=== PATIENT | female | born 1990 | race Caucasian/White ===

== ENCOUNTER 2017-06-23 16:16 | Emergency (ER) | payer OTHER ==
[~2017-06-23] VITALS: Ht 170.2 cm; Wt 149.7 kg
[~2017-06-23 16:16] MED LIST: ALBU8.5H8 INH; DEXT10CA10 PO; DEXT5TAB27 PO; FOLI1TAB16 PO; GUAI120L35 PO; IBUP800T19 PO; LORC10TA PO; ONDA4TAB10 SL; ZOLP10TA PO
--- NOTE | 2017-06-23 16:52 | PHYS DOC ---
Past History Past Medical History: Other Past Surgical History: No Surgical History Alcohol Use: None Drug Use: None Adult General Chief Complaint Chief Complaint: DIARRHEA HPI HPI Patient is a 27-year-old female who presents with diffuse abdominal cramping and loose stools since yesterday. Patient denies nausea vomiting, fever chills or sweats. Denies blood in stools dark tarry stools. No recent antibiotics. No localization of lower abdominal pain. No flank pain. Pain is rated as mild-to- moderate waxed and wanes. No medications or therapy sticking prior to ED arrival. No prior abdominal surgeries. Last menstrual period was 3 weeks ago. Patient is not currently on control. Review of Systems Review of Systems Review symptoms as per history of present illness. All other review symptoms are negative. Current Medications Current Medications Current Medications Medications (Trade) Dose Ordered Sig/Rajiv Start Time Stop Time Status Last Admin Dose Admin Dicyclomine HCl (Bentyl) 20 mg 1X ONCE 06/23/17 17:00 06/23/17 17:01 Allergies Allergies Allergies Coded Allergies Type Severity Reaction Last Updated Verified Penicillins Allergy Intermediate Hives 03/05/14 Yes Physical Exam Physical Exam Constitutional: Well developed, well nourished, no acute distress, non-toxic appearance. [] HENT: Normocephalic, atraumatic, bilateral external ears normal, oropharynx moist, nose normal. [] Eyes: PERRLA, EOMI, conjunctiva normal, no discharge. [] Neck: Normal range of motion. [] Cardiovascular:Heart rate regular rhythm, no murmur [] Lungs & Thorax: Bilateral breath sounds clear to auscultation [] Abdomen: Bowel sounds normal, soft, crease bowel sounds, mild distention, no rebound rigidity or guarding. Negative McBurney's point. [] Skin: Warm, dry, no erythema. [] Back: No tenderness, no CVA tenderness. [] Extremities: No tenderness. [] Neurologic: Alert and oriented X 3, normal motor function, normal sensory function, no focal deficits noted. [] Psychologic: Affect normal, judgement normal, mood normal. [] EKG EKG [] Radiology/Procedures Radiology/Procedures [] Course & Med Decision Making Course & Med Decision Making Pertinent Labs and Imaging studies reviewed. (See chart for details) [Diffuse abdominal cramping with loose stools 24 hours. No fever or vomiting, bloody stools or recent antibiotics. Tolerates fluids in the ED. Will treat supportively with close PCP follow-up in 2-3 days. Return precautions reviewed. Return precautions reviewed. Patient verbalizes understanding treatment discharge instructions prior to departure.] Dragon Disclaimer Dragon Disclaimer This chart was dictated in whole or in part using Voice Recognition software in a busy, high-work load, and often noisy Emergency Department environment. It may contain unintended and wholly unrecognized errors or omissions. Departure Departure: Impression: Primary Impression: Abdominal pain Additional Impression: Diarrhea Disposition: HOME, SELF-CARE Condition: GOOD Referrals: MUNIRA LAWRENCE (PCP) Patient Instructions: Diarrhea, [id number], Diet for Diarrhea, Adult Additional Instructions: Please take Bentyl as prescribed for abdominal pain and cramping and tramadol as needed for additional relief. Follow-up with your PCP in 2-3 days for reevaluation if symptoms persist. In the meantime, if you develop new or worsening symptoms, return to the emergency department. Problem Qualifiers DUSTY ESCAMILLA DO Jun 23, 2017 16:52
[2017-06-23] MEDS ORDERED: DICYCLOMINE HCL 20 MG TABLET PO ONE (17:00)
[2017-06-23 17:20] VITALS: BP 146/94
== END 2017-06-23 17:20 | disposition home or self-care (01) ==
LOC: ER 16:16
DX: R10.84 Generalized abdominal pain (principal); R19.7 Diarrhea, unspecified; Z88.0 Allergy status to penicillin
CPT/HCPCS: 81025; 99283

== ENCOUNTER 2017-07-08 09:46 | Emergency (ER) | payer OTHER ==
[2017-07-08 09:52] VITALS: BP 128/84
[2017-07-08] MEDS ORDERED: HYDROcodone/APAP 7.5/325MG 1 TAB TABLET PO ONE (10:30)
--- NOTE | 2017-07-08 10:35 | PHYS DOC ---
Past History Past Medical History: No Pertinent History Past Surgical History: No Surgical History Alcohol Use: None Drug Use: Marijuana Adult General Chief Complaint Chief Complaint: LACERATION/AVULSION [facility] HPI Patient is a 27 year old female who presents with complaint of head injury and facial laceration after suffering an accidental fall at home. Patient states that she was exiting her bathtub when she slipped and fell, striking the right side of her face on the tub. Patient states that she was dazed initially but denies complete loss of consciousness. Patient states that she has a bad headache at this time and is also complaining of pain along the right side of her eye. The patient states that she suffered a laceration on the lateral aspect of her right eye over the eyelid. Bleeding was controlled prior to arrival. Patient denies any significant past medical history. Patient rates pain to the face as 10 out of 10. Patient denies loss of vision. Review of Systems Review of Systems Constitutional: Denies fever or chills [] Eyes: Denies change in visual acuity, redness, or eye pain [] HENT: Right eyelid laceration, right eye pain[] Respiratory: Denies cough or shortness of breath [] Cardiovascular: No additional information not addressed in HPI [] GI: Denies abdominal pain, nausea, vomiting, bloody stools or diarrhea [] : Denies dysuria or hematuria [] Musculoskeletal: Denies back pain or joint pain [] Integument: Denies rash or skin lesions [] Neurologic: Headache, denies focal weakness or sensory changes [] Current Medications Current Medications Current Medications Medications (Trade) Dose Ordered Sig/Rajiv Start Time Stop Time Status Last Admin Dose Admin Acetaminophen/ Hydrocodone Bitart (Lortab 7.5/325) 1 tab 1X ONCE 07/08/17 10:15 07/08/17 10:16 UNV Allergies Allergies Allergies Coded Allergies Type Severity Reaction Last Updated Verified Penicillins Allergy Intermediate Hives 03/05/14 Yes Physical Exam Physical Exam Constitutional: Alert, obese, afebrile, appears in moderate discomfort. [] HENT: Normocephalic, atraumatic, bilateral external ears normal, oropharynx moist, no oral exudates, nose normal. [] Eyes: PERRLA, EOMI, 2.5 cm linear laceration along right lateral periorbitum adjacent to eyelid, mild periorbital ecchymosis present, conjunctiva normal, no discharge. [] Neck: Normal range of motion, no tenderness, supple, no stridor. [] Cardiovascular:Heart rate regular rhythm, no murmur [] Lungs & Thorax: Bilateral breath sounds clear to auscultation [] Abdomen: Bowel sounds normal, soft, no tenderness, no masses, no pulsatile masses. [] Skin: Warm, dry, no erythema, no rash. [] Back: No tenderness, no CVA tenderness. [] Extremities: No tenderness, no cyanosis, no clubbing, ROM intact, no edema. [] Neurologic: Alert and oriented X 3, normal motor function, normal sensory function, no focal deficits noted. [] Current Patient Data Vital Signs Vital Signs Date Time Temp Pulse Resp B/P (MAP) Pulse Ox O2 Delivery O2 Flow Rate FiO2 07/08/17 09:52 98.2 91 18 98 Room Air EKG EKG Not performed[] Radiology/Procedures Radiology/[place] [address] IMAGING REPORT Signed PATIENT: CALVIN KERNS ACCOUNT: [id number] : 1990 LOCATION: ER AGE: 27 SEX: F EXAM STATUS: REG ER ORD. PHYSICIAN: LACEY MEDINA MD REASON: fall, head injury PROCEDURE: CT HEAD WO CONTRAST One or more of the following individualized dose reduction techniques were utilized for this examination: 1. Automated exposure control 2. Adjustment of the mA and/or kV according to patient size 3. Use of iterative reconstruction technique CT brain without contrast. History: Fall with head injury trauma to frontal area, dizziness CT scan of brain was done without contrast. There are multiple densities in the subcutaneous tissues posteriorly which appear benign possibly sebaceous cysts. There is no intracranial hemorrhage or subdural hematoma. Ventricles are normal in size. There is no mass or shift of the midline. There is an air-fluid level in the left maxillary sinus. An obvious facial fracture is not identified, the fluid level suggests acute sinusitis. There is no skull fracture evident. Impression: 1. Multiple subcutaneous densities which appear benign. 2. Left maxillary sinusitis with an air-fluid level. 3. No intracranial hemorrhage or acute finding noted intracranially. DICTATED AND SIGNED BY: NAVNEET DENG MD DATE: 07/08/17 1053 CC: LACEY MEDINA MD; MUNIRA LAWRENCE ~ [] Course & Med Decision Making Course & Med Decision Making Pertinent Labs and Imaging studies reviewed. (See chart for details) Ice was applied to the affected area after laceration was repaired as outlined in the procedure note. Patient also given hydrocodone for pain in the emergency department. CT head was negative. Advised patient to leave Steri-Strips in place over the next 5-7 days and stated these will come off on their own. Advised follow-up with primary doctor in 3-5 days for reevaluation. The patient has persistent headache which would suggest closed head injury with mild concussion symptoms. Advised the patient avoid any contact sports or other activity that could result in another head injury until her symptoms have completely resolved. Advised return emergency department for any worsening symptoms. Patient was understanding and in agreement with treatment plan. Dragon Disclaimer Dragon Disclaimer This chart was dictated in whole or in part using Voice Recognition software in a busy, high-work load, and often noisy Emergency Department environment. It may contain unintended and wholly unrecognized errors or omissions. Laceration Repair Lac Repair Indication: Right eyelid laceration Procedure: The patient was placed in the appropriate position. The area was then cleansed with moistened gauze. The laceration was closed using Skin affix liquid skin adhesive and reinforced with Steri-Strips. Total repaired wound length: 2.5 cm. The patient tolerated the procedure without difficulty. Complications: None. Departure Departure: Impression: Primary Impression: Facial laceration Additional Impressions: Closed head injury with concussion Periorbital ecchymosis of right eye Disposition: 01 HOME, SELF-CARE Condition: IMPROVED Referrals: MUNIRA LAWRENCE (PCP) Patient Instructions: Facial Laceration, Head Injury, Adult, Tissue Adhesive Wound Care Additional Instructions: Follow-up with your primary doctor in 3-5 days for reevaluation. Return to the emergency department for any worsening symptoms. Scripts Acetaminophen With Codeine (TYLENOL WITH CODEINE #3 TABLET) 1 Each Tablet 1 TAB PO Q6HRS Y for PAIN, #15 TAB Prov: LACEY MEDINA MD 07/08/17 Problem Qualifiers Primary Impression: Facial laceration Encounter type: initial encounter Qualified Codes: S01.81XA - Laceration without foreign body of other part of head, initial encounter Additional Impressions: Closed head injury with concussion Encounter type: initial encounter Loss of consciousness presence/duration: without LOC Qualified Codes: S06.0X0A - Concussion without loss of consciousness, initial encounter Periorbital ecchymosis of right eye Encounter type: initial encounter Qualified Codes: S00.11XA - Contusion of right eyelid and periocular area, initial encounter LACEY MEDINA MD Jul 08, 2017 10:35
--- NOTE | 2017-07-08 11:00 | RAD ---
One or more of the following individualized dose reduction techniques were utilized for this examination: 1. Automated exposure control 2. Adjustment of the mA and/or kV according to patient size 3. Use of iterative reconstruction technique CT brain without contrast. History: Fall with head injury trauma to frontal area, dizziness CT scan of brain was done without contrast. There are multiple densities in the subcutaneous tissues posteriorly which appear benign possibly sebaceous cysts. There is no intracranial hemorrhage or subdural hematoma. Ventricles are normal in size. There is no mass or shift of the midline. There is an air-fluid level in the left maxillary sinus. An obvious facial fracture is not identified, the fluid level suggests acute sinusitis. There is no skull fracture evident. Impression: 1. Multiple subcutaneous densities which appear benign. 2. Left maxillary sinusitis with an air-fluid level. 3. No intracranial hemorrhage or acute finding noted intracranially.
[2017-07-08] MEDS ORDERED: ACET-704 PO (11:11)
== END 2017-07-08 11:20 | disposition home or self-care (01) ==
LOC: ER 09:46
DX: S06.0X0A Concussion without loss of consciousness, initial encounter (principal); S00.11XA Contusion of right eyelid and periocular area, initial encounter; S01.81XA Laceration without foreign body of other part of head, initial encounter; F12.10 Cannabis abuse, uncomplicated; Z88.0 Allergy status to penicillin; W01.198A Fall on same level from slipping, tripping and stumbling with subsequent striking against other object, initial encounter; Y93.89 Activity, other specified; Y99.8 Other external cause status; Y92.89 Other specified places as the place of occurrence of the external cause
CPT/HCPCS: 12011; 70450; 81025; 99284-25

== ENCOUNTER 2017-08-07 09:28 | Emergency (ER) | payer OTHER ==
[~2017-08-07 09:28] MED LIST changes: +ACET-704 PO
[2017-08-07] MEDS ORDERED: PRED20TA PO (10:14)
[2017-08-07] MEDS ORDERED: DOXY100C14 PO (10:14)
--- NOTE | 2017-08-07 10:17 | PHYS DOC ---
General Chief Complaint: SORE THROAT Stated Complaint: SORE THROAT Time Seen by MD: 09:53 Source: patient Exam Limitations: no limitations Problems: History of Present Illness Initial Comments Patient is a 27-year-old female who comes to the ED complaining of sore throat. Patient states that for the past few days she's had clear nasal drainage and dry cough. Today she awoke with a severe sore throat limiting her by mouth intake to liquids only. She had the feeling as if her throat was closing, she had a sensation of dyspnea however at least on ED evaluation her vital signs are stable. She's had some headache tender lymphadenopathy chills and sweats. She is concerned she may have strep throat, she also states that she has had oral sex relations with a new partner unprotected this past week and is concerned about the possibility of an STD causing pharyngitis. She has no known exposure but does have the unprotected oral sex exposure as stated. She denies any immunocompromise status or prior STI infection. She denies any rash or wheezing no history of food or environmental allergies. Timing/Duration: gradual, yesterday Severity: moderate Location: nose, throat Prearrival Treatment: over the counter meds Modifying Factors: worse with coughing, improves with other Associated Symptoms: cough, fever, malaise, nasal congestion/drainage, poor solids intake, sore throat Allergies: Coded Allergies: Penicillins (Verified Allergy, Intermediate, Hives, 03/05/14) Past Medical History Medical History: other (ADD) Surgical History: noncontributory Social History Smoker: non-smoker Alcohol: none Drugs: marijuana Constitutional: see HPI Ears: denies dizziness, denies pain, denies tinnitus Nose: see HPI, denies clots, denies congestion, denies epistaxis Throat: see HPI, denies neck stiffness, denies difficulty with fluids Respiratory: see HPI, cough, denies wheezing Cardiovascular: denies chest pain, denies palpitations Gastrointestinal: denies abdominal pain, denies nausea, denies vomiting Musculoskeletal: see HPI, denies back pain, denies joint swelling, denies neck pain Skin: denies rash Neurological: see HPI Immunological/Allergic: see HPI Physical Exam General Appearance: no apparent distress, obese Eyes: bilateral eye normal inspection, bilateral eye PERRL, bilateral eye EOMI Ears: bilateral ear auricle normal, bilateral ear canal normal, bilateral ear other (mild serous fluid noted bilaterally) Mouth/Throat: other (tonsils 2+ with mild erythema no exudate, airway is patent posterior oropharynx without erythema or exudate or vesicles) Neck: trachea midline, other (tender shotty lymphadenopathy bilaterally, otherwise supple full range of motion no palpable subcutaneous mass consistent with abscess) Cardiovascular/Respiratory: normal peripheral pulses, normal breath sounds, no respiratory distress 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 In the interim will treat for tonsillitis and given the patient's sensation of throat swelling will place her on a prednisone burst for 5 days. I discussed signs and symptoms to monitor and indications for urgent return to the department. Patient's questions were answered she expressed agreement and understanding of treatment plan. She was advised to discontinue marijuana abuse. Departure Time of Disposition: 10:15 Disposition: 01 HOME, SELF-CARE Diagnosis: tonsillitis Condition: GOOD Patient Instructions: Safe Sex, Tonsillitis, [id number] Additional Instructions: It is advised that you discontinue marijuana abuse. Barrier protection for all sexual activity. [id number] Tylenol and analgesic throat sprays as needed. Aggressive hydration with Gatorade or water. Off work today, note given. Prescription: Doxycycline, prednisone (to alleviate throat swelling) Follow-up with your doctor in 5-7 days for recheck and to go over throat culture results. Return to the ED with new or changing symptoms. GISSEL DVAIS DO Aug 07, 2017 10:17
[2017-08-07 10:39] VITALS: BP 133/111
== END 2017-08-07 10:39 | disposition home or self-care (01) ==
LOC: ER 09:28
DX: J03.90 Acute tonsillitis, unspecified (principal); R51 Headache; F12.10 Cannabis abuse, uncomplicated; Z88.0 Allergy status to penicillin
CPT/HCPCS: 87070; 87880; 99283

== ENCOUNTER 2018-05-25 20:40 | Emergency (ER) | payer OTHER ==
[~2018-05-25] VITALS: Ht 172.7 cm; Wt 152.8 kg
[~2018-05-25 20:40] MED LIST changes: +DOXY100C14 PO; +PRED20TA PO
--- NOTE | 2018-05-25 21:31 | PHYS DOC ---
Past History Past Medical History: Other Past Surgical History: No Surgical History Alcohol Use: Occasionally Drug Use: Marijuana Adult General Chief Complaint Chief Complaint: BACK PAIN OR INJURY [facility] HPI 27-year-old female presents with upper lumbar pain. The patient was thrown away trash into a dumpster when she had sudden onset of upper lumbar pain. The pain radiates down both sides and she is having some tingling in her left leg. The patient denies back pain at baseline. She states that the bike she was throwing away wasn't all that heavy. She did throw away with a twisting motion. The patient is also obese. She presents with make sure she did not cause a serious injury. She denies fever, chills, or any other injury. Review of Systems Review of Systems Constitutional: Denies fever or chills [] Eyes: Denies change in visual acuity, redness, or eye pain [] HENT: Denies nasal congestion or sore throat [] Respiratory: Denies cough or shortness of breath [] Cardiovascular: No additional information not addressed in HPI [] GI: Denies abdominal pain, nausea, vomiting, bloody stools or diarrhea [] : Denies dysuria or hematuria [] Musculoskeletal: Low back pain [] Integument: Denies rash or skin lesions [] Neurologic: Denies headache, focal weakness or sensory changes [] Endocrine: Denies polyuria or polydipsia [] All other systems were reviewed and found to be within normal limits, except as documented in this note. Allergies Allergies Allergies Coded Allergies Type Severity Reaction Last Updated Verified Penicillins Allergy Intermediate Hives 03/05/14 Yes Physical Exam Physical Exam Constitutional: Well developed, morbidly obese, well nourished, no acute distress, non-toxic appearance. [] HENT: Normocephalic, atraumatic, bilateral external ears normal, oropharynx moist, no oral exudates, nose normal. [] Eyes: PERRLA, EOMI, conjunctiva normal, no discharge. [] Neck: Normal range of motion, no tenderness, supple, no stridor. [] Cardiovascular:Heart rate regular rhythm, no murmur [] Lungs & Thorax: Bilateral breath sounds clear to auscultation [] Abdomen: Bowel sounds normal, soft, no tenderness, no masses, no pulsatile masses. [] Skin: Warm, dry, no erythema, no rash. [] Back: Paraspinal muscle tenderness L1-L3. No step-offs[] Extremities: No tenderness, no cyanosis, no clubbing, ROM intact, no edema. [] Neurologic: Alert and oriented X 3, normal motor function, normal sensory function, no focal deficits noted. [] Psychologic: Affect normal, judgement normal, mood normal. [] Current Patient Data Vital Signs Vital Signs Date Time Temp Pulse Resp B/P (MAP) Pulse Ox O2 Delivery O2 Flow Rate FiO2 05/25/18 20:48 97.7 98 20 96 Room Air EKG EKG [] Radiology/Procedures Radiology/Procedures [] Impressions: My interpretation: No acute findings, no fracture no dislocation Course & Med Decision Making Course & Med Decision Making Pertinent Labs and Imaging studies reviewed. (See chart for details) The patient's lumbar x-rays are negative for acute findings. This is likely a muscle strain. I have given the patient Norflex and Toradol in the ED. I will discharge her with Flexeril and advised ibuprofen use. She is stable for discharge at this time [] Dragon Disclaimer Dragon Disclaimer This electronic medical record was generated, in whole or in part, using a voice recognition dictation system. Departure Departure: Referrals: MUNIRA LAWRENCE (PCP) DUSTY KIDD DO May 25, 2018 21:31
[2018-05-25] MEDS ORDERED: ORPHENADRINE CITRATE 60 MG/2 ML VIAL. IM ONE (23:00)
[2018-05-25] MEDS ORDERED: KETOROLAC 60 MG/2 ML VIAL. IM ONE (23:00)
[2018-05-25 23:20] VITALS: BP 139/92
[2018-05-25] MEDS ORDERED: CYCL-331 PO (23:28)
--- NOTE | 2018-05-26 07:45 | RAD ---
Indication: Back pain radiating down the right leg after turning swiftly from hips. TECHNIQUE: 3 views of the lumbar spine COMPARISON: Previous study from 06/11/2015 FINDINGS: There are 5 lumbar type vertebral bodies. Lumbar spine is in normal anatomic alignment. No compression deformities. Mild multilevel intervertebral disc space narrowing is seen in the lower thoracic spine and lumbar spine with mild endplate irregularity. No significant facet arthropathy. SI joints are within normal limits. IMPRESSION: 1. No acute findings. 2. Mild multilevel degenerative disc disease. Electronically signed by: Donaldo Gee DO (05/26/2018 7:41 AM) [facility]
== END 2018-05-25 23:31 | disposition home or self-care (01) ==
LOC: ER 20:40
DX: M54.5 Low back pain (principal); Z88.0 Allergy status to penicillin; X50.9XXA Other and unspecified overexertion or strenuous movements or postures, initial encounter; Y93.89 Activity, other specified; Y99.8 Other external cause status; Y92.89 Other specified places as the place of occurrence of the external cause
CPT/HCPCS: 72100; 81025; 96372; 99284; J1885; J2360

== ENCOUNTER 2018-07-17 09:40 | Emergency (ER) | payer OTHER ==
[~2018-07-17] VITALS: Ht 172.7 cm; Wt 152.8 kg
[~2018-07-17 09:40] MED LIST changes: +CYCL-331 PO
[2018-07-17] MEDS ORDERED: KETOROLAC 60 MG/2 ML VIAL. IM ONE (10:40)
[2018-07-17 11:13] LABS: BACTERIA,URINE MOD /HPF (0-FEW); BILIRUBIN,URINE NEG (NEG); CLARITY,URINE HAZY; COLOR,URINE YELLOW; GLUCOSE,URINE NEG (NEG); NITRITE,URINE NEG (NEG); SQUAMOUS EPITHELIAL CELL,UR FEW /LPF; UROBILINOGEN,URINE 0.2 mg/dL (0.2 mg/dL)
[2018-07-17] MEDS ORDERED: TRAM-48 PO (11:29)
[2018-07-17] MEDS ORDERED: CYCL-331 PO (11:29)
[2018-07-17] MEDS ORDERED: NAPR-683 PO (11:29)
[2018-07-17] MEDS ORDERED: METH4TAB2 PO (11:29)
--- NOTE | 2018-07-17 11:30 | PHYS DOC ---
Past History Past Medical History: Other Past Surgical History: No Surgical History Alcohol Use: Occasionally Drug Use: Marijuana Adult General Chief Complaint Chief Complaint: BACK PAIN OR INJURY [facility] HPI Patient is a 28 year old female who presents with back pain. Patient states she injured her back one month ago and seen in this emergency room with diagnose of sciatica with marked improvement of her back pain. Patient states she was seen by chiropractor last week that made her pain worse and since this morning she has had severe pain that getting worse with movement and could not get out of the bed. She denies focal neuro deficit, barring urinary incontinence, fever and chills, abdominal pain, . Patient states she has appointment with her physician tomorrow but could not wait until tomorrow. Review of Systems Review of Systems Constitutional: Denies fever or chills [] Eyes: Denies change in visual acuity, redness, or eye pain [] HENT: Denies nasal congestion or sore throat [] Respiratory: Denies cough or shortness of breath [] Cardiovascular: No additional information not addressed in HPI [] GI: Denies abdominal pain, nausea, vomiting, bloody stools or diarrhea [] : Denies dysuria or hematuria [] Musculoskeletal: Reports back pain Integument: Denies rash or skin lesions [] Neurologic: Denies headache, focal weakness or sensory changes [] Endocrine: Denies polyuria or polydipsia [] All other systems were reviewed and found to be within normal limits, except as documented in this note. Current Medications Current Medications Current Medications Medications (Trade) Dose Ordered Sig/Rajiv Start Time Stop Time Status Last Admin Dose Admin Ketorolac Tromethamine (Toradol Im) 60 mg 1X ONCE 07/17/18 10:40 07/17/18 10:41 DC 07/17/18 10:21 60 MG Allergies Allergies Allergies Coded Allergies Type Severity Reaction Last Updated Verified Penicillins Allergy Intermediate Hives 03/05/14 Yes Physical Exam Physical Exam Constitutional: Well nourished, mild distress, non-toxic appearance, morbidly obese. [] HENT: Normocephalic, atraumatic Eyes: PERRLA, EOMI, conjunctiva normal, no discharge. [] Neck: Normal range of motion, no tenderness, supple, no stridor. [] Cardiovascular:Heart rate regular rhythm, no murmur [] Lungs & Thorax: Bilateral breath sounds clear to auscultation [] Abdomen: Bowel sounds normal, soft, no tenderness, no masses, no pulsatile masses. [] Skin: Warm, dry, no erythema, no rash. [] Back: No midline tenderness, painful range of motion of lower back, no CVA tenderness. [] Extremities: No tenderness, no cyanosis, no clubbing, ROM intact, no edema. [] Neurologic: Alert and oriented X 3, normal motor function, normal sensory function, no focal deficits noted. [] Psychologic: Affect anxious, judgement normal, mood normal. [] Current Patient Data Vital Signs Vital Signs Date Time Temp Pulse Resp B/P (MAP) Pulse Ox O2 Delivery O2 Flow Rate FiO2 07/17/18 09:58 98.5 88 18 98 Room Air Lab Results Laboratory Tests Test 07/17/18 10:46 Urine Collection Type Unknown Urine Color Yellow Urine Clarity Hazy Urine pH 7.0 Urine Specific [place] 1.020 Urine Protein Neg (NEG-TRACE) Urine Glucose (UA) Neg mg/dL (NEG) Urine Ketones (Stick) Neg mg/dL (NEG) Urine Blood Neg (NEG) Urine Nitrite Neg (NEG) Urine Bilirubin Neg (NEG) Urine Urobilinogen Dipstick 0.2 mg/dL (0.2 mg/dL) Urine Leukocyte Esterase Neg (NEG) Urine RBC 1-2 /HPF (0-2) Urine WBC 1-4 /HPF (0-4) Urine Squamous Epithelial Cells Few /LPF Urine Bacteria Mod /HPF (0-FEW) Urine Mucus Slight /LPF EKG EKG [] Radiology/Procedures Radiology/Procedures [] Course & Med Decision Making Course & Med Decision Making Pertinent Labs reviewed. (See chart for details) Evaluation of patient in ER showed 28-year-old female patient with morbid obesity and complaining of low back pain for 1 month. Patient treated with Toradol and quinti and instructed to follow with her primary care physician for possible MRI chronic back pain. Dragon Disclaimer Dragon Disclaimer This electronic medical record was generated, in whole or in part, using a voice recognition dictation system. Departure Departure: Impression: Primary Impression: Sciatica Additional Impression: Morbid obesity Disposition: HOME, SELF-CARE (@1126) Condition: IMPROVED Referrals: MUNIRA LAWRENCE (PCP) Patient Instructions: Sciatica Additional Instructions: Apply ice on your back Follow-up with your primary care physician as scheduled tomorrow for possible MRI of your back Return to ER if not getting better Scripts Tramadol Hcl (ULTRAM) 50 Mg Tablet 50 MG PO PRN Q6HRS PRN for PAIN, #20 TAB Prov: ALEX ODELL MD 07/17/18 Naproxen (NAPROSYN) 500 Mg Tablet 1 TAB PO BID, #20 TAB Prov: ALEX ODELL MD 07/17/18 Methylprednisolone (MEDROL) 4 Mg Tab.ds.pk 1 PKG PO UD, #1 PKG Prov: ALEX ODELL MD 07/17/18 Cyclobenzaprine Hcl (CYCLOBENZAPRINE HCL) 10 Mg Tablet 1 TAB PO TID, #30 TAB Prov: ALEX ODELL MD 07/17/18 Problem Qualifiers ALEX ODELL MD Jul 17, 2018 11:30
[2018-07-17 11:53] VITALS: BP 145/76
[2018-07-17] MEDS ORDERED: HYDROcodone/APAP 5/325MG 1 TAB TABLET PO ONE (12:10)
== END 2018-07-17 11:54 | disposition home or self-care (01) ==
LOC: ER 09:40
DX: M54.42 Lumbago with sciatica, left side (principal); Z88.0 Allergy status to penicillin
CPT/HCPCS: 81001; 87086; 96372; 99284; J1885

== ENCOUNTER 2018-10-14 10:42 | Emergency (ER) | payer OTHER ==
[~2018-10-14] VITALS: Ht 172.7 cm; Wt 147.0 kg
[2018-10-14 10:42] VITALS: BP 128/87
[~2018-10-14 10:42] MED LIST changes: +ALBU2.5V8 INH; -ALBU8.5H8 INH; +METH4TAB2 PO; +NAPR-683 PO; +TRAM-48 PO
[2018-10-14] MEDS ORDERED: HYDROcodone/APAP 5/325MG 1 TAB TABLET PO ONE (12:15)
[2018-10-14] MEDS ORDERED: Percogesic PO (13:17)
--- NOTE | 2018-10-14 13:17 | PHYS DOC ---
Past History Past Medical History: Other Past Surgical History: No Surgical History Alcohol Use: Occasionally Drug Use: Marijuana Adult General Chief Complaint Chief Complaint: ANKLE PROBLEM HPI HPI Patient is a 28 year old female who presents with complaining of right foot and ankle injury. Patient states she lost her balance and had a fall with twisting his right ankle at 1 AM today without loss of consciousness or other injuries. Patient complaining of pain in lateral of her foot and rated her pain 10 over 10 with walking and 8/10 with non-bearing weight. Patient denies focal neuro deficit, fever and chills, nausea and vomiting, . Review of Systems Review of Systems Constitutional: Denies fever or chills [] Eyes: Denies change in visual acuity, redness, or eye pain [] HENT: Denies nasal congestion or sore throat [] Respiratory: Denies cough or shortness of breath [] Cardiovascular: No additional information not addressed in HPI [] GI: Denies abdominal pain, nausea, vomiting, bloody stools or diarrhea [] : Denies dysuria or hematuria [] Musculoskeletal: Denies back pain, reports joint pain [] Integument: Denies rash or skin lesions [] Neurologic: Denies headache, focal weakness or sensory changes [] Endocrine: Denies polyuria or polydipsia [] All other systems were reviewed and found to be within normal limits, except as documented in this note. Current Medications Current Medications Current Medications Medications (Trade) Dose Ordered Sig/Rajiv Start Time Stop Time Status Last Admin Dose Admin Acetaminophen/ Hydrocodone Bitart (Lortab 5/325) 1 tab 1X ONCE 10/14/18 12:15 10/14/18 12:16 DC 10/14/18 12:12 1 TAB Allergies Allergies Allergies Coded Allergies Type Severity Reaction Last Updated Verified Penicillins Allergy Intermediate Hives 03/05/14 Yes Physical Exam Physical Exam Constitutional: Well developed, well nourished, mild distress, non-toxic appearance, morbidly obese. [] HENT: Normocephalic, atraumatic. Eyes: PERRLA, EOMI, conjunctiva normal, no discharge. [] Neck: Normal range of motion, no tenderness, supple, no stridor. [] Cardiovascular:Heart rate regular rhythm, no murmur [] Lungs & Thorax: Bilateral breath sounds clear to auscultation [] Skin: Warm, dry, no erythema, no rash. [] Back: No tenderness, no CVA tenderness. [] Extremities: Right foot without deformity him a small area of tenderness and bulging in the shaft of fifth metatarsal area with mild tenderness, mild edema right lateral malleolus, no cyanosis, no clubbing, painful range of motion. Neurologic: Alert and oriented X 3, normal motor function, normal sensory function, no focal deficits noted. [] Psychologic: Affect normal, judgement normal, mood normal. [] Current Patient Data Vital Signs Vital Signs Date Time Temp Pulse Resp B/P (MAP) Pulse Ox O2 Delivery O2 Flow Rate FiO2 10/14/18 12:12 18 98 Room Air EKG EKG [] Radiology/Procedures Radiology/Procedures [address] [id number] IMAGING REPORT Signed PATIENT: CALVIN KERNS ACCOUNT: [id number] : 1990 LOCATION: ER AGE: 28 SEX: F EXAM STATUS: REG ER ORD. PHYSICIAN: ALEX ODELL MD REASON: INJURY PROCEDURE: ANKLE RIGHT 3V ANKLE RIGHT 3V History: fell today, right ankle pain. Comparison: None are available Calcaneal enthesophytes are identified. Small bone density adjacent to the anterior process of the calcaneus, indeterminate age but could represent a small nondisplaced fracture. Small linear density dorsal to the navicular bone, suspicious for small avulsion fracture age-indeterminate. However, note there is no significant soft tissue swelling in this area to suggest it is acute. Additional small soft tissue density lateral to the calcaneocuboid joint, chronic etiology is favored. No definite acute fracture. No dislocation. IMPRESSION: 1. Small linear density dorsal to the navicular bone, compatible with an avulsion fracture of indeterminate age but no overlying soft tissue swelling is seen 2. 2 small calcification seen just lateral to the calcaneocuboid region, appear chronic. 3. Small bone fragment adjacent to the anterior process of the calcaneus, could represent an ununited ossicle versus a small age-indeterminate nondisplaced fracture. Electronically signed by: Jose Medel MD (10/14/2018 1:52 PM) [facility] DICTATED AND SIGNED BY: JOSE MEDEL MD DATE: 10/14/18 1348 CC: ALEX ODELL MD; MUNIRA LAWRENCE ~ Course & Med Decision Making Course & Med Decision Making Pertinent Imaging studies reviewed. (See chart for details) Evaluation of patient in ER showed 28-year-old female patient with injury to right foot. X-ray showed an avulsion fracture of navicular with undetermined age. Patient had post op shoe and crutches in ER and treated with [place]. Patient secondary to follow up with her primary care physician or orthopedic physician. Dragon Disclaimer Dragon Disclaimer This electronic medical record was generated, in whole or in part, using a voice recognition dictation system. Departure Departure: Impression: Primary Impression: Right foot injury Disposition: HOME, SELF-CARE (at 1313) Condition: IMPROVED Referrals: MUNIRA LAWRENCE (PCP) Patient Instructions: Foot Contusion Additional Instructions: Apply ice on the affected area Follow-up with your primary care physician in 3-5 days Return to ER if not getting better Use provided crutches Scripts [Percogesic] No Conflict Check 1 TAB PO QID PRN for PAIN, #14 Prov: ALEX ODELL MD 10/14/18 ALEX ODELL MD Oct 14, 2018 13:17
--- NOTE | 2018-10-14 13:56 | RAD ---
ANKLE RIGHT 3V History: fell today, right ankle pain. Comparison: None are available Calcaneal enthesophytes are identified. Small bone density adjacent to the anterior process of the calcaneus, indeterminate age but could represent a small nondisplaced fracture. Small linear density dorsal to the navicular bone, suspicious for small avulsion fracture age-indeterminate. However, note there is no significant soft tissue swelling in this area to suggest it is acute. Additional small soft tissue density lateral to the calcaneocuboid joint, chronic etiology is favored. No definite acute fracture. No dislocation. IMPRESSION: 1. Small linear density dorsal to the navicular bone, compatible with an avulsion fracture of indeterminate age but no overlying soft tissue swelling is seen 2. 2 small calcification seen just lateral to the calcaneocuboid region, appear chronic. 3. Small bone fragment adjacent to the anterior process of the calcaneus, could represent an ununited ossicle versus a small age-indeterminate nondisplaced fracture. Electronically signed by: Jose Medel MD (10/14/2018 1:52 PM) [facility]
== END 2018-10-14 14:00 | disposition home or self-care (01) ==
LOC: ER 10:42
DX: S99.921A Unspecified injury of right foot, initial encounter (principal); S99.911A Unspecified injury of right ankle, initial encounter; Z88.0 Allergy status to penicillin; W18.30XA Fall on same level, unspecified, initial encounter; Y93.89 Activity, other specified; Y92.89 Other specified places as the place of occurrence of the external cause; Y99.8 Other external cause status
CPT/HCPCS: 73610; 99284

== ENCOUNTER → 2019-05-23 | Outpatient (CLI) | payer MEDICAID ==
[~2019-05-23] MED LIST changes: +Percogesic PO
--- NOTE | 2019-05-23 16:02 | RAD ---
3 views of the abdomen 05/23/2019 INDICATION: Lower abdominal pain, nausea, vomiting COMPARISON STUDY: Abdominal radiograph September 24, 2014. FINDINGS: No gross pneumoperitoneum is identified. The bowel gas pattern is nonobstructive. No acute osseous changes are identified. The liver shadow appears prominent, hepatomegaly not excluded. IMPRESSION: 1. Nonobstructive bowel gas pattern 2. Prominent liver shadow. Hepatomegaly not excluded. Electronically signed by: Zelalem Kelly MD (05/23/2019 3:59 PM) [id number]
== END | disposition home or self-care (01) ==
LOC: DXRAD 15:20
PROVIDERS: ATTEND Physician Assistant
DX: R11.2 Nausea with vomiting, unspecified (principal); R10.30 Lower abdominal pain, unspecified
CPT/HCPCS: 74019

== ENCOUNTER → 2019-12-05 | Outpatient (CLI) | payer MEDICAID ==
--- NOTE | 2019-12-05 10:53 | RAD ---
INDICATION: Cough with concern for pneumonia COMPARISON: February 2016 FINDINGS: 2 view of chest obtained. Cardiac silhouette is unremarkable. Degenerative changes of spine. No definite focal airspace consolidation IMPRESSION: * No focal airspace consolidation or edema. Electronically signed by: Devaughn Murphy MD (12/05/2019 10:50 AM) [facility]
== END | disposition home or self-care (01) ==
LOC: PMG 10:07
PROVIDERS: ATTEND Registered Nurse
DX: R07.89 Other chest pain (principal); M47.9 Spondylosis, unspecified
CPT/HCPCS: 71046

== ENCOUNTER 2020-02-01 16:21 | Emergency (ER) | payer MEDICAID ==
[~2020-02-01] VITALS: Ht 325.1 cm; Wt 152.8 kg
[2020-02-01 16:21] VITALS: BP 134/86
--- NOTE | 2020-02-01 16:42 | PHYS DOC ---
Past History Past Medical History: Other Additional Past Medical Histor: Obesity Past Surgical History: No Surgical History Smoking: Non-smoker Alcohol Use: Occasionally Drug Use: Marijuana General Adult EDM: Chief Complaint: HAND PROBLEM HPI: HPI: 29-year-old female presents with report of left pinky pain after accidentally tripping over her cat knocking some hot wax onto her hand. Patient reports occurred just prior to arrival. Reports some blistering has occurred to her hand. Patient reports significant amount of pain. Denies . Patient reports she has been dipping her hand in cold water with some improvement of her symptoms. Review of Systems: Review of Systems: Constitutional: Denies fever or chills Eyes: Denies redness or eye pain HENT: Denies nasal congestion or sore throat Respiratory: Denies cough or shortness of breath Cardiovascular: Denies chest pain or palpitations GI: Denies abdominal pain, nausea, or vomiting : Denies dysuria or hematuria Musculoskeletal: Denies back pain or joint pain Integument: Reports burn with blistering to left fifth digit Neurologic: Denies headache, focal weakness or sensory changes Complete systems were reviewed and found to be within normal limits, except as documented in this note. Allergies: Allergies: Allergies Coded Allergies Type Severity Reaction Last Updated Verified Penicillins Allergy Intermediate Hives 03/05/14 Yes Physical Exam: PE: Constitutional: Well developed, well nourished, no acute distress, non-toxic appearance HENT: Normocephalic, atraumatic, oropharynx moist Eyes: Conjunctiva normal, no discharge Neck: Normal range of motion, no tenderness, supple Cardiovascular: Left radial pulse +2, CR of left 5th digit < 2 sec Skin: Warm, dry, no erythema, circumferential partial thickness 2nd degree burn to base of left 5th finger, open blister to volar aspect, small serosanguineous filled blister to medial aspect of finger, no contractures Back: No tenderness, no CVA tenderness Extremities: Left 5th finger pain at site of burn, ROM intact, no edema Neurologic: Alert and oriented X 3, no focal deficits noted Psychologic: Affect normal, judgment normal EKG: EKG: [] Radiology/Procedures: Radiology/Procedures: [] Course & Med Decision Making: Course & Med Decision Making Patient presents with burn to left pinky finger. Partial-thickness second-degree smith appreciated. Pain addressed. Wound cleaned and dressed with Silvadene ointment application. Patient stable for discharge with outpatient follow-up with PCP. Discussed findings and plan with patient, who acknowledges understanding and agreement. [place] Disclaimer: [place] Disclaimer: This electronic medical record was generated, in whole or in part, using a voice recognition dictation system. Departure Departure: Impression: Primary Impression: Burn Disposition: 01 HOME, SELF-CARE Condition: STABLE Referrals: MUNIRA LAWRENCE (PCP) Patient Instructions: Burn Care, [id number], Second-Degree Burn Scripts Hydrocodone Bit/Acetaminophen (NORCO 5-325 TABLET) 1 Each Tablet 0.5-1 TAB PO Q4-6HRS PRN for PAIN, #10 TAB Prov: ZAID SHAW DO 02/01/20 Silver Sulfadiazine (SILVADENE) 20 Gm Cream..g. 1 BLANCHE TP BID for Burn, #50 GM 0 Refills apply to affected area(s) Prov: ZAID SHAW DO 02/01/20 ZAID SHAW DO Feb 01, 2020 16:42
[2020-02-01] MEDS ORDERED: HYDROcodone/APAP 5/325MG 1 TAB TABLET ONE (16:48)
[2020-02-01] MEDS ORDERED: HYDR-3165 PO (16:49)
[2020-02-01] MEDS ORDERED: SILV20CR14 TP (16:49)
[2020-02-01] MEDS ORDERED: HYDROcodone/APAP 5/325MG 1 TAB TABLET PO ONE (17:00)
[2020-02-01] MEDS ORDERED: silver sulfADIAZINE 1% CREAM 50GM JAR. TP ONE (17:00)
== END 2020-02-01 17:00 | disposition home or self-care (01) ==
LOC: ER 16:21
DX: T23.222A Burn of second degree of single left finger (nail) except thumb, initial encounter (principal); Z88.0 Allergy status to penicillin; X12.XXXA Contact with other hot fluids, initial encounter; Y93.89 Activity, other specified; Y92.89 Other specified places as the place of occurrence of the external cause; Y99.8 Other external cause status
CPT/HCPCS: 16000; 99283

== ENCOUNTER 2020-07-27 17:21 | Emergency (ER) | payer MEDICAID ==
[~2020-07-27] VITALS: Ht 170.2 cm; Wt 152.8 kg
[~2020-07-27 17:21] MED LIST changes: +HYDR-3165 PO; +SILV20CR14 TP
[2020-07-27 17:31] VITALS: BP 137/88
[2020-07-27] MEDS ORDERED: predniSONE 20 MG TABLET PO ONE (18:00)
[2020-07-27] MEDS ORDERED: KETOROLAC 60 MG/2 ML VIAL. IM ONE (18:00)
[2020-07-27] MEDS ORDERED: ORPHENADRINE CITRATE 60 MG/2 ML VIAL. IM ONE (18:00)
--- NOTE | 2020-07-27 18:08 | PHYS DOC ---
Past History Past Medical History: Asthma, Diabetes, Other Additional Past Medical Histor: Obesity Past Surgical History: No Surgical History Smoking: Non-smoker Alcohol Use: Occasionally Drug Use: Marijuana Adult General Chief Complaint Chief Complaint: LOWER BACK PAIN OR INJURY HPI HPI Patient is a [30-year-old female who presents lower back pain. Patient reports she has been moving things in her home, and exercising for the last few weeks, however 3 days ago she started have some lower back pain after lifting something heavy. States that she had gone to a chiropractor today for adjustment, and following adjustment her pain increased severely. States she has gotten to the point where she can hardly walk due to the discomfort. She has noted no loss of bowel or bladder, has some shooting pain that goes into her left hip down her left leg. States she has had this similar in the past, approximately 2 years ago, with this feeling identical. States she had taken some Aleve this morning, however has not taken any and continued to have some discomfort.. States her leg feels more comfortable when it is raised and resting on her other leg. Reports she is able to walk, however she is still in discomfort while walking Review of Systems Review of Systems Constitutional: Denies fever or chills [] Eyes: Denies change in visual acuity, redness, or eye pain [] HENT: Denies nasal congestion or sore throat [] Respiratory: Denies cough or shortness of breath [] Cardiovascular: No additional information not addressed in HPI [] GI: Denies abdominal pain, nausea, vomiting, bloody stools or diarrhea [] : Denies dysuria or hematuria [] Musculoskeletal: Denies back pain or joint pain [] Integument: Denies rash or skin lesions [] Neurologic: Denies headache, focal weakness or sensory changes [] Endocrine: Denies polyuria or polydipsia [] All other systems were reviewed and found to be within normal limits, except as documented in this note. Current Medications Current Medications Current Medications Medications (Trade) Dose Ordered Sig/Rajiv Start Time Stop Time Status Last Admin Dose Admin Ketorolac Tromethamine (Toradol Im) 30 mg 1X ONCE 07/27/20 18:00 07/27/20 18:01 DC Orphenadrine Citrate (Norflex) 60 mg 1X ONCE 07/27/20 18:00 07/27/20 18:01 DC Prednisone (Prednisone) 40 mg 1X ONCE 07/27/20 18:00 07/27/20 18:01 DC Allergies Allergies Allergies Coded Allergies Type Severity Reaction Last Updated Verified Penicillins Allergy Intermediate Hives 07/27/20 Yes Physical Exam Physical Exam Constitutional: Well developed, well nourished, no acute distress, non-toxic appearance. Obese [] HENT: Normocephalic, atraumatic, bilateral external ears normal, oropharynx moist, no oral exudates, nose normal. [] Eyes: PERRLA, EOMI, conjunctiva normal, no discharge. [] Neck: Normal range of motion, no tenderness, supple, no stridor. [] Cardiovascular:Heart rate regular rhythm, no murmur [] Lungs & Thorax: Bilateral breath sounds clear to auscultation [] Abdomen: Bowel sounds normal, soft, no tenderness, no masses, no pulsatile masses. [] Skin: Warm, dry, no erythema, no rash. [] Back: no CVA tenderness. Minimal tenderness over palpation to left lower back, no spinous process tenderness [] Extremities: No tenderness, no cyanosis, no clubbing, ROM intact, no edema. Distal pulses strong bilaterally to lower legs [] Neurologic: Alert and oriented X 3, normal motor function, normal sensory function, no focal deficits noted. [] Psychologic: Affect normal, judgement normal, mood normal. [] Current Patient Data Vital Signs Vital Signs Date Time Temp Pulse Resp B/P (MAP) Pulse Ox O2 Delivery O2 Flow Rate FiO2 07/27/20 17:31 97.6 92 19 137/88 (104) 97 EKG EKG [] Radiology/Procedures Radiology/Procedures []Three-view lumbar spine radiographs 07/27/2020 CLINICAL HISTORY: Low back pain after lifting injury. AP and 2 lateral digital radiographs of the lumbar spine were obtained. The alignment of the lumbar vertebrae is within normal limits. No fracture or subluxation is seen. Degenerative changes are seen involving the lower thoracic and throughout the lumbar spine listing ovarian cyst of disc space narrowing, vertebral endplate sclerosis and minimal to mild anterior and posterior vertebral body osteophyte formation. Degenerative changes involving the facet joints of the lower lumbar spine. No fracture or subluxation is seen. IMPRESSION: Degenerative changes are seen as discussed above. No acute osseous abnormality is seen. Electronically signed by: Zan Gonsalez MD (07/27/2020 6:49 PM) [id number] DICTATED AND SIGNED BY: ZAN GONSALEZ MD DATE: 07/27/20 1849 Heart Score Risk Factors: Risk Factors: DM, Current or recent (<one month) smoker, HTN, HLP, family history of CAD, obesity. Risk Scores: Risk Factors: DM, Current or recent (<one month) smoker, HTN, HLP, family history of CAD, obesity. Course & Med Decision Making Course & Med Decision Making Pertinent Labs and Imaging studies reviewed. (See chart for details) []reports she is feeling a little better following medications but still has discomfort. Is ok with plan to discharge home with muscle relaxants, continue pain medications as needed. Dragon Disclaimer Dragon Disclaimer This electronic medical record was generated, in whole or in part, using a voice recognition dictation system. Departure Departure: Impression: Primary Impression: Lumbago of lumbar region with sciatica Disposition: 01 DC HOME SELF CARE/HOMELESS Condition: STABLE Referrals: MUNIRA LAWRENCE (PCP) Patient Instructions: Back Pain, Adult, [id number], Sciatica Additional Instructions: As discussed, take muscle relaxants as prescribed. You may continue to take ibuprofen, 600 mg every 6 hours and/or Tylenol 650 to 1000 mg every 6 hours. Do not take the muscle relaxers before driving. Try to avoid lifting anything heavy for a few days to allow your back to heal. You may consider applying ice or heat to your back, whichever feels better. Follow-up with your primary care provider as needed. Scripts Cyclobenzaprine Hcl (CYCLOBENZAPRINE HCL) 10 Mg Tablet 1 TAB PO TID PRN PRN for PAIN, #12 TAB Prov: JOSÉ MANUEL TALBERT APRN 07/27/20 JOSÉ MANUEL TALBERT APRN Jul 27, 2020 18:08
--- NOTE | 2020-07-27 18:52 | RAD ---
Three-view lumbar spine radiographs 07/27/2020 CLINICAL HISTORY: Low back pain after lifting injury. AP and 2 lateral digital radiographs of the lumbar spine were obtained. The alignment of the lumbar vertebrae is within normal limits. No fracture or subluxation is seen. Degenerative changes are seen involving the lower thoracic and throughout the lumbar spine listing ovarian cyst of disc space narrowing, vertebral endplate sclerosis and minimal to mild anterior and posterior vertebral body osteophyte formation. Degenerative changes involving the facet joints of the lower lumbar spine. No fracture or subluxation is seen. IMPRESSION: Degenerative changes are seen as discussed above. No acute osseous abnormality is seen. Electronically signed by: Zan Navarrete MD (07/27/2020 6:49 PM) [id number]
[2020-07-27] MEDS ORDERED: CYCL-331 PO (19:04)
[2020-07-27] MEDS ORDERED: HYDROcodone/APAP 5/325MG 1 TAB TABLET PO ONE (19:15)
== END 2020-07-27 19:30 | disposition home or self-care (01) ==
LOC: ER 17:21
DX: M54.42 Lumbago with sciatica, left side (principal); J45.909 Unspecified asthma, uncomplicated; E11.9 Type 2 diabetes mellitus without complications; E66.9 Obesity, unspecified; Z68.43 Body mass index [BMI] 50.0-59.9, adult; Z88.0 Allergy status to penicillin
CPT/HCPCS: 72100; 96372; 99284; J1885; J2360; J7512